=== PATIENT | male | born 1970 | race Caucasian/White ===

== ENCOUNTER 2024-06-01 06:39 | Emergency (ER) | payer SELFPAY ==
[2024-06-01 06:42] VITALS: BP 162/88
--- NOTE | 2024-06-01 07:05 | ED.GENMED ---
History of Present Illness
General
Chief Complaint: Abdominal Symptoms
Time Seen by Provider: 06/01/24 06:48
History of Present Illness
History of Present Illness:
53-year-old male without significant past medical history presenting for concern of right inguinal hernia. Patient reports yesterday he was lifting something heavy and felt a pop in his right inguinal region. He went to urgent care, was told that
he has a hernia and was told to come to the emergency department for a CAT scan. He denies any pain. He denies any vomiting. Denies any changes in his stool. Denies any fever. Denies chest pain or difficulty breathing. Denies any urinary
complaints. Denies additional acute medical complaints.
Phy Exam
Physical Exam
Physical Exam:
General: Well-appearing, no clinical signs of dehydration, nontoxic and in no acute distress
HEENT: protecting airway
Neck: appears supple
CV: Normal heart rate
Resp: No accessory muscle use, no increased work of breathing
Abd: Soft and non-distended, no tenderness to palpation. Reducible right inguinal hernia. Audible bowel sounds with suspected contents bowel. No tenderness
Extremities: No deformities
Neuro: alert, no focal neurologic deficit
: deferred
Rectal: deferred
Psych: Normal affect
Skin: Intact
Course
Vital Signs
Initial and Last Documented VS:
Initial Vital Signs
Temp Pulse Resp BP Pulse Ox
97.8 F 68 18 162/88 100
06/01/24 06:42 06/01/24 06:42 06/01/24 06:42 06/01/24 06:42 06/01/24 06:42
Last Documented Vital Signs
Temp Pulse Resp BP Pulse Ox
97.8 F 68 18 162/88 100
06/01/24 06:42 06/01/24 06:42 06/01/24 06:42 06/01/24 06:42 06/01/24 06:42
MDM/Problems Addressed
MDM/Problems Addressed:
53-year-old male presenting to the emergency department for suspected right after lifting something heavy at work yesterday. Vital signs on arrival are significant for mild hypertension.
On exam patient is well-appearing, no acute distress or discomfort. Overall benign examination. No tenderness to the abdomen. Obvious right inguinal hernia, however reducible without tenderness. Audible bowel sounds with suspected contents to be
bowel. At this time do not feel patient requires any CT imaging or advanced workup. No concern for strangulation or incarceration. No concern for obstructive pathology. Feel stable for discharge, with outpatient surgical follow-up. Will provide
information. Strict return precautions communicated, and education provided regarding strangulated versus incarcerated hernia. Patient verbalized understanding
*Critical Care Note
Total Time (30-74mins, 75-104mins- exclusive of procedures): Not Applicable
ED Attending Note
-
Portions of this chart may have been created with voice recognition software.� Occasional wrong word or��sound alike� substitutions may have occurred due to the inherent limitations of voice recognition software.
Discharge Plan
Departure
Patient Disposition: Home (Routine Discharge)
Date of Disposition: 06/01/24
Time of Disposition: 07:10
Patient with high blood pressure during this ER visit?: Yes
Condition: Good
Discharge Problem:
Inguinal hernia of right side with obstruction and without gangrene
Instructions: Groin hernias, BLOOD PRESSURE
Prescriptions:
No Action
No Current Medications
0
Referrals:
Ru Galaviz MD [Active] - (right inguinal hernia)
Activity Restrictions/Additional Instructions:
You were seen in the emergency department for concern of a hernia
You were found to have a right inguinal hernia, or a hernia in your groin. Your hernia is reducible, meaning it pushes back into the abdomen easily. If it anytime you are having pain to the area and the hernia feels stuck, meaning it does not push
back in easily, please return to the emergency department immediately.
Please follow-up closely with your primary care physician.
Return to the emergency department for any worsening of your symptoms, or any development of chest pain, difficulty breathing, abdominal pain with persistent vomiting and inability to tolerate food or liquid by mouth (concern for dehydration),
weakness, headache or confusion, fever greater than 100.4, or any additional symptoms that are concerning to you.
Thank you for choosing [facility].
Interventions
Interventions:
*Risk Screen - Suicide Last Done: 06/01/24 06:42
*General Assessment Last Done: 06/01/24 06:42
*Neglect/Abuse Screening Last Done: 06/01/24 06:42
ED- Fall Risk Assessment Last Done: 06/01/24 06:42
*ED COVID-19 Vaccine History Last Done: 06/01/24 06:42
*Nursing Disposition Last Done: 06/01/24 07:35
KS-Yrapsa-Ozqrstcvts Assessment Last Done: 06/01/24 07:14
Discharge Date and Time
Discharge Date/Time: 06/01/24 07:35
Print Language: LUXEMBOURGISH
[2024-06-01 07:14] VITALS: BMI 27.4
== END 2024-06-01 07:35 | disposition home or self-care (01) ==
LOC: EMR 06:39
PROVIDERS: EMERGENCY PHYSICIAN Student in an Organized Health Care Education/Training Program; FAMILY PHYSICIAN Internal Medicine
DX: K40.30 Unilateral inguinal hernia, with obstruction, without gangrene, not specified as recurrent (principal); Z91.040 Latex allergy status
CPT/HCPCS: 99282

== ENCOUNTER 2024-07-06 06:25 | Day surgery (SDC) | payer OTHER, SELFPAY ==
[2024-06-19 08:23] VITALS: BMI 33.5
[2024-06-19 09:46] LABS: Hematocrit 42.4 % (39.0-52.0); Hemoglobin 14.2 g/dL (13.0-18.0); Mean Corp Hgb Conc. 33.5 g/dL (33.0-37.0); Mean Corpuscular Hgb 30.8 pg (27.0-31.0); Platelet Count 228 10^3/uL (130-400); Red Blood Cell Count 4.61 10^6/uL (4.70-6.10)
[2024-06-19 10:12] LABS: ALT (SGPT) 26 U/L (0-50); AST (SGOT) 26 U/L (17-59); Albumin 4.6 g/dl (3.5-5.0); Alkaline Phosphatase 58 U/L (38-126); Blood Urea Nitrogen 9 mg/dl (9-20); Calcium 9.7 mg/dl (8.4-10.2); Carbon Dioxide 29 mmol/L (22-30); Chloride 101 mmol/L (98-107); Estimated Creatinine Clearance > 125 ml/min; Glucose 119 mg/dl (70-99); Potassium 5.5 mmol/L (3.5-5.1); Sodium 140 mmol/L (135-145); Total Bilirubin 0.4 mg/dl (0.2-1.3); Total Protein 7.3 g/dl (6.3-8.2); eGFR > 60.00
[2024-06-19 10:36] LABS: TSH Reflex To Free T4 1.12 uIU/ml (0.47-4.68)
--- NOTE | 2024-06-30 10:44 | PTCARENOTE ---
Patients 06/19 leonardo Roe @ Dr. Cordoba office notified
--- NOTE | 2024-06-30 16:09 | PTCARENOTE ---
K+ 5.5, Dr Zuleta notified and no additional interventions required.
[2024-07-06] VITALS (12 sets, daily range): BP systolic 108–152; BP diastolic 43–85; BMI 33.5
[2024-07-06] MEDS: TYLENOL 1000 MG PO (08:28)
[2024-07-06 08:29] LABS: Glucose - Point of Care 112 mg/dl (70-99)
--- NOTE | 2024-07-06 08:55 | W.SUR.PREOP ---
Pre-Operative Surgical Note
-
I have examined this patient prior to the performance of the scheduled procedure.
The patient's condition is unchanged from the time of the current History and
Physical and the patient is able to undergo the scheduled procedure.
--- NOTE | 2024-07-06 12:19 | W.IMMPOSTOP ---
Surgical Immed Post Op Note
-
Primary Surgeon: Juan A Duran MD
Assisting Surgeon: None
Pre-op Diagnosis: Right inguinal hernia
Post-op Diagnosis: Bilateral inguinal hernia
Procedure Performed: Robotic bilateral inguinal hernia repair with mesh
Anesthesia Type: General
Specimen / Cultures: Left cord lipoma
Estimated Blood Loss: 23 cc
Complications: None
Operative Findings: Large right indirect hernia through moderate-sized aperture. No direct or femoral defects. No cord lipoma. On the left side the patient had a small indirect defect as well as weakness over the direct space. No femoral defect.
There was a small cord lipoma that was reduced and resected. The critical view of the MPO was achieved bilaterally and of the spaces were reinforced with bilateral large Bard 3D max mid weight uncoated polypropylene mesh.
--- NOTE | 2024-07-06 12:24 | OR.RPT ---
Operative Report
Operative Report
Patient Name: Benito Morrison
: 1970
Date of Operation: 07/06/2024
Preoperative Diagnosis: Right scrotal inguinal hernia
Postoperative Diagnosis: Bilateral inguinal hernias
Procedure(s):
Robotic bilateral inguinal Hernia Repair with mesh, (DEAN approach)
Surgeon(s):
Dr. Duran
Industrial Robotics Mechanic(s):
GEMMA Cuevas
Anesthesia: General
Estimated Blood Loss: 23 cc
Urine Output: None
Drains/Lines/Implants: Large 3D Max Bard mid weight uncoated polypropylene mesh x2
Specimens: Left cord lipoma
Indication for surgery: The patient has a history of groin pain and noted on exam to have a right inguinal Hernia. Following review of therapeutic options they have elected to undergo a minimally invasive repair.
Operative Findings: Large right indirect hernia through a typically-sized aperture. No direct or femoral defects. No cord lipoma. On the left side the patient had a small indirect defect as well as weakness over the direct space. No femoral
defect. There was a small cord lipoma that was reduced and resected. The critical view of the MPO was achieved bilaterally and of the spaces were reinforced with bilateral large Bard 3D max mid weight uncoated polypropylene mesh.
Details of the operation:
The patient was brought to the Operating Room and placed in the supine position with the arms tucked. IV antibiotics were infused and Venodyne stockings placed. Following uneventful induction of general endotracheal anesthesia, an orogastric tube
were placed. The abdomen was prepped and draped in the usual sterile fashion. The abdomen was entered using a Veress technique which required 1 pass, pneumoperitoneum to 15 mmHg was obtained without difficulty. An 8mm trochar was passed through
the abdominal wall roughly 20 cm cephalad to the inguinal canal. We then confirmed that no inadvertent injury was made while passing the trocar or Veress needle. We then placed two additional 8 mm ports in the left upper and right upper quadrants.
We then docked the robot with a Prograsper in the left hand port and monopolar scissors in the right. A large right indirect inguinal defect could be readily appreciated. On the left side a small left indirect hernia was also notable. We then
began by creating a flap at the level of the ASIS laterally working our way medially to the medial umbilical fold, on the right side. Staying onto the peritoneum we were able to circumferentially dissect around the hernia sac and and peel it off of
the underlying spermatic cord and testicular vessels, taking care to preserve them. Medially we identified the midline pubis as well as Craig's ligament and ensured to dissect 2 cm below the pubic rim over the bladder. After exposure of the
entire myopectineal orifice we identified and reduced: A very large indirect inguinal hernia sac through a typically sized opening, no direct inguinal hernia, no femoral hernia, and no cord lipoma. The exact same procedure was repeated on the
patient's left side here we identified a small indirect inguinal defect, general weakness over the direct space, no femoral defect, and a small cord lipoma that was reduced and resected. After achieving the critical view of the MPO bilaterally, we
introduced and then fixated a large 3D max mesh with a 2-0 Vicryl stitch at coopers medially and superior laterally, bilaterally. The flaps were then closed with running 2-0 barbed monocryl suture ensuring that the tail was cut flush with the
medial fat pad so that no barbs were exposed. During the closure of the flaps an Angiocath was inserted and 20 cc of quarter percent Marcaine was instilled. The area in the flap cavity was then evacuated of air confirming that the mesh was flush
and there were no folds. A small rent in the peritoneum was noted and closed with 2-0 Vicryl. All needles and instruments were then removed and the robot was undocked. The abdomen was then desufflated, and pneumoperitoneum evacuated. All skin
sites were then closed with 4-0 Monocryl followed by Dermabond. Counts were correct and overall, the patient tolerated the procedure well and was taken to the Recovery Room postoperatively in stable condition.
I was the attending physician and performed the procedure with assistance of the SACK CLEANER above. I was present for all portions of the case, excluding skin closure.
Juan A Duran MD
[2024-07-06 12:25] LABS: Glucose - Point of Care 152 mg/dl (70-99)
[2024-07-06] MEDS: SUBLIMAZE 25 MCG IV ×2 (12:46→12:55)
[2024-07-06] MEDS: DILAUDID 0.25 MG IV (13:35)
== END 2024-07-06 15:00 | disposition home or self-care (01) ==
LOC: SDS 06:25
PROVIDERS: ATTENDING PHYSICIAN Surgery; FAMILY PHYSICIAN Internal Medicine
DX: K40.20 Bilateral inguinal hernia, without obstruction or gangrene, not specified as recurrent (principal); D17.6 Benign lipomatous neoplasm of spermatic cord
CPT/HCPCS: 49650; 88304; 36415; 80053; 82962; 84443; 85027; 93005; C1781

== ENCOUNTER → 2024-08-18 08:32 | Outpatient (REF) | payer OTHER, SELFPAY | LOC: RAD 08:32 | PROVIDERS: ATTENDING PHYSICIAN Surgery; FAMILY PHYSICIAN Internal Medicine | DX: R10.31 Right lower quadrant pain (principal) | CPT/HCPCS: 74177; Q9967 ==

== ENCOUNTER 2024-10-05 06:20 | Day surgery (SDC) | payer OTHER, SELFPAY ==
[2024-10-05] VITALS (9 sets, daily range): BP systolic 119–137; BP diastolic 70–90; BMI 33.3
[2024-10-05] MEDS: NORMOSOL-R/PLASMALYTE-A 1000 IV (11:14)
[2024-10-05 11:20] LABS: Glucose - Point of Care 99 mg/dl (70-99)
--- NOTE | 2024-10-05 11:42 | HP.FOC2 ---
Focused History & Physical
Chief Complaint
HPI:
Chief Complaint: Right inguinal pain
HPI / Indication for Planned Procedure: This is a 54-year-old male with history of large right scrotal inguinal hernia status post robotic bilateral inguinal hernia repair with mesh as incidentally found left inguinal hernia was identified
preoperatively. Unfortunately postoperatively he developed right inguinal pain. Subsequent exam and CT scan confirmed no recurrence had occurred but there was a persistent large right cord lipoma that had not been identified intraoperatively as
well as a roughly 3.9 cm seroma
Relevant Past Medical History: Negative
Relevant Social History: Negative
Relevant Family History: Negative
Relevant Past Surgical History: Positive for (Robotic bilateral inguinal hernia repair with mesh.)
Review of Systems
Review of Pertinent Systems: All Systems Negative
Medication
See Medication form for detailed medications: No
Medication List (including Herbals & OTC):
budesonide-formoterol HFA 160 mcg-4.5 mcg/actuation aerosol inhaler (Symbicort) 2 puff inhalation BID 06/29/24
cyanocobalamin (vitamin B-12) 1,000 mcg tablet (Vitamin B-12) 1,000 mcg PO DAILY 06/29/24
metformin 500 mg tablet,extended release 24 hr 1,000 mg PO DAILY 06/29/24
rosuvastatin 20 mg tablet 20 mg PO DAILY 06/29/24
Allergies and Reactions
Patient has Allergies: Yes
Noted Allergies and Reactions:
Allergy/AdvReac Type Severity Reaction Status Date / Time
latex Allergy Irritation Verified 10/05/24 11:04
Pertinent Physical Exam
All Other Systems: Negative
Head/Neck: Normal
Diagnosis / Assessment
Right cord lipoma, right inguinal seroma
Plan / Procedure
Open right groin exploration. The patient is okay with excision of his lipoma and seroma. He also understands that he may need a drain which she feels comfortable managing at home and does not want to be admitted postoperatively. He even though
his chief complaint is right inguinal pain he is adamant that he does not want neurectomy as he is afraid this would result in '[id number]' so we will forego any neurectomy at this operation. He understands that this may result in continued
pain after this operation and if so may need additional surgery to remove nerves down the road.
Anesthesia/Sedation to be done by Anesthesia Provider: Yes
[2024-10-05 14:06] LABS: Glucose - Point of Care 137 mg/dl (70-99)
--- NOTE | 2024-10-05 14:11 | W.IMMPOSTOP ---
Surgical Immed Post Op Note
-
Primary Surgeon: Juan A Duran MD
Assisting Surgeon: None
Pre-op Diagnosis: Right cord lipoma, right groin seroma
Post-op Diagnosis: Same
Procedure Performed:
Open right groin exploration, excision of lipoma and seroma
Anesthesia Type: General
Specimen / Cultures:
1. Right inguinal lipoma
2. Right inguinal seroma
Estimated Blood Loss: 7 cc
Complications: None
Operative Findings: A large right cord lipoma was identified, isolated and resected at the level of the deep ring. A 3.5 x 4 cm seroma was also identified along the cord. This was carefully dissected off the surrounding structures and excised. No
hernia was identified so no additional mesh was placed. As the seroma was removed intact, no drain was placed.
--- NOTE | 2024-10-05 14:14 | OR.RPT ---
Operative Report
Operative Report
Patient Name: Benito Morrison
: 1970
Date of Operation: 10/05/2024
Preoperative Diagnosis: Right groin cord lipoma, seroma
Postoperative Diagnosis: Same
Procedure(s):
Open right groin exploration, excision of a lipoma and seroma
Surgeon(s):
Dr. Duran
Pre School Teacher(s):
AMARJIT Castillo
Anesthesia: General
Estimated Blood Loss: 7 cc
Urine Output: None
Drains/Lines/Implants: none
Specimens:
1. Right groin lipoma
2. Right groin seroma
Indication for surgery: The patient has a history of a prior symptomatic large right inguinal hernia status post robotic bilateral inguinal hernia repair with mesh. At that time no cord lipoma was identified on the right side but postoperatively he
developed right groin pain and a CT scan confirmed a missed right cord lipoma as well as a small seroma. Following review of therapeutic options they has elected to undergo an open exploration and removal of is a lipoma and seroma.
Operative Findings: A large right cord lipoma was identified, isolated and resected at the level of the deep ring. A 3.5 x 4 cm seroma was also identified along the cord. This was carefully dissected off the surrounding structures and excised. No
hernia was identified so no additional mesh was placed. As the seroma was removed intact, no drain was placed.
Details of the operation:
After induction of general anesthesia, the patient was clipped, prepped and draped in the supine position. A team timeout was performed confirming administration of DVT prophylaxis, IV antibiotics and SCDs. The ASIS and pubic tubercle were marked
and an incision was chosen along the course of a skin line. The skin was anesthetized with Lidocaine. An incision was made through the skin line and dissection carried down through subcutaneous tissue and Inge's fascia. The superficial epigastric
vein was identified and ligated. A Small Fabrizio wound retractor was used to provide exposure. There was a significant protrusion of preperitoneal fat at the external ring, the external obliques here appear to be blown out. The cord was isolated
using a Uday drain and then explored. A cord lipoma was identified and dissected off of the natural cord structures. A high ligation of the cord lipoma was performed and passed off the field as specimen 1. We then identified the seroma which
was densely adherent to the surrounding cord structures but this was carefully dissected off of them with minimal injury to the vital structures. A few of the small veins had to be sacrificed as they were densely adherent to the seroma itself. The
seroma was removed intact but the capsule in place. As no direct or indirect hernia was noted no additional mesh was placed. Care was taken not to injure or entrap any nerves. Inge's fascia was then closed with interrupted 3-0 Vicryl suture. The
skin was closed in layers with interrupted 3-0 vicryl deep dermals followed by a running subcuticular 4-0 Monocryl followed by dermabond. The patient returned to the Recovery Room in stable condition. Sponge and instrument counts were correct. No
specimens sent to Pathology.
I was the attending physician and performed the procedure with assistance of the PA above. The assistance of AMARJIT Castillo was required due to the complexity of the procedure. During the procedure Jolynn assisted with retraction, resection, and
closure of the wound. I was present for all portions of the case, excluding skin closure.
Juan A Duran MD
[2024-10-05] MEDS: ROXICODONE 5 MG PO (15:20)
== END 2024-10-05 15:35 | disposition home or self-care (01) ==
LOC: SDS 06:20
PROVIDERS: ATTENDING PHYSICIAN Surgery
DX: D17.6 Benign lipomatous neoplasm of spermatic cord (principal); N50.1 Vascular disorders of male genital organs
CPT/HCPCS: 55520; 88304; 82962